=== PATIENT | female | born 1955 | race Caucasian/White ===

== ENCOUNTER 2018-07-09 13:18 | Inpatient (IN) | payer BC ==
[~2018-07-09] VITALS: Ht 170.2 cm; Wt 118.7 kg
[2018-07-09 13:58] VITALS: BP 118/78
[2018-07-09 14:27] LABS: MEAN CORPUSCULAR HEMOGLOBIN 29.3 pg (27.0-34.8); MEAN CORPUSCULAR HGB CONC 33.3 g/dL (32.4-35.8); MEAN CORPUSCULAR VOLUME 87.9 fL (80-100); MEAN PLATELET VOLUME 7.9 fL (7.4-10.4); PLATELET COUNT 282 x10^3/uL (130-400); RED BLOOD COUNT 4.81 x10^6/uL (3.82-5.3); RED CELL DISTRIBUTION WIDTH 15.1 % (9.6-15.2)
[2018-07-09] MEDS ORDERED: LABETALOL 5MG/ML, 20ML IV PRN (14:30)
[2018-07-09] MEDS ORDERED: hydrALAzine 20 MG/ML, 1ML IV PRN (14:30)
[2018-07-09] MEDS ORDERED: OXYcodone 5 MG/5 ML ORAL.SOL UDC PO PRN (14:30)
[2018-07-09] MEDS ORDERED: ONDANSETRON 2MG/ML, 2ML IV PRN ×2 (14:30→18:00)
[2018-07-09] MEDS ORDERED: FENTANYL PF 100 MCG/2ML IV PRN (14:30)
[2018-07-09] MEDS ORDERED: SERT25TA PO (14:34)
[2018-07-09] MEDS ORDERED: CELEBREX (14:34)
[2018-07-09] MEDS ORDERED: TRAM50TA2 PO (14:34)
[2018-07-09] MEDS ORDERED: ETAN50DI2 INJ (14:34)
[2018-07-09] MEDS ORDERED: FENTANYL PF 100 MCG/2ML ONE (14:35)
[2018-07-09] MEDS ORDERED: MIDAZOLAM 1 MG/ML, 2ML ONE (14:35)
[2018-07-09 14:39] LABS: ALANINE AMINOTRANSFERASE 17 U/L (12-78); ALBUMIN 3.3 g/dL (3.4-5.0); ANION GAP 10 mmol/L (5-15); CALCIUM 9.2 mg/dL (8.5-10.1); CHLORIDE 106 mmol/L (98-107); CREATININE 0.79 mg/dL (0.55-1.02)
[2018-07-09 14:41] LABS: ALKALINE PHOSPHATASE 101 U/L (45-117); BILIRUBIN,TOTAL 0.8 mg/dL (0.2-1.0)
[2018-07-09] MEDS ORDERED: LACTATED RINGERS 1,000 ML IV SCH (15:00)
[2018-07-09 15:04] LABS: MD YES
[2018-07-09 15:07] LABS: <PLATELET ESTIMATE> ADEQUATE; <PLT MORPHOLOGY> NORMAL PLT MORPH; <RBC MORPHOLOGY> NORMAL; BANDS%(MANUAL) 11 % (0-7); LYMPHS% (MANUAL) 3 % (22-44); MONOS% (MANUAL) 5 % (2-9); SEGS% (MANUAL) 81 % (42-75)
[2018-07-09] MEDS ORDERED: ONDANSETRON 2MG/ML, 2ML ONE (15:27)
[2018-07-09] MEDS ORDERED: PROPOFOL 10 MG/ML, 20ML ONE (15:27)
[2018-07-09] MEDS ORDERED: HYDROmorphone 1 MG/ML, 1ML IV PRN (18:00)
[2018-07-09] MEDS ORDERED: SENNA/DOCUSATE TABLET PO PRN (18:00)
[2018-07-09] MEDS ORDERED: OXYcodone/APAP 5/325MG TABLET PO PRN (18:00)
[2018-07-09] MEDS ORDERED: DIPHENHYDRAMINE 25 MG CAPSULE PO PRN ×2 (18:00→19:00)
[2018-07-09] MEDS ORDERED: HYDROcodone/APAP 5/325 TABLET PO PRN (18:00)
[2018-07-09] MEDS: DOCUSATE 100 MG CAPSULE PO SCH (20:39)
[2018-07-09] MEDS: ACETAMINOPHEN 500 MG TABLET PO SCH (20:41)
[2018-07-09 21:27] VITALS: BP 124/75
[2018-07-10 00:16] VITALS: BP 111/52
[2018-07-10 04:12] VITALS: BP 96/46
[2018-07-10] MEDS ORDERED: VANCOMYCIN 2,000 MG in SODIUM CHLORIDE 0.9% 500 ML IV SCH (05:00)
[2018-07-10 07:20] VITALS: BP 91/51
[2018-07-10] MEDS: DOCUSATE 100 MG CAPSULE PO SCH ×2 (07:43→21:00)
[2018-07-10] MEDS: SERTRALINE 50MG TABLET PO SCH ×2 (07:43→15:40)
[2018-07-10] MEDS: ACETAMINOPHEN 500 MG TABLET PO SCH ×3 (07:43→20:51)
[2018-07-10] MEDS: LACTATED RINGERS 1,000 ML IV SCH (07:50)
[2018-07-10] MEDS ORDERED: FENTANYL PF 250 MCG/5ML ONE ×2 (10:34→11:55)
[2018-07-10] MEDS ORDERED: TRANEXAMIC ACID 100 MG/ML, 10ML ONE ×2 (10:50)
[2018-07-10] MEDS ORDERED: KETOROLAC 60 MG/2 ML ONE (10:50)
[2018-07-10] MEDS ORDERED: SODIUM CHLORIDE 0.9% 100 ML ONE (10:51)
[2018-07-10] MEDS ORDERED: VANCOMYCIN 1,000 MG ONE (10:51)
[2018-07-10] MEDS ORDERED: TOBRAMYCIN SULFATE 1.2 GM IMP ONE (10:51)
[2018-07-10] MEDS ORDERED: ROPIvacaine/PF 0.5%, 30 ML ONE (10:52)
[2018-07-10] MEDS ORDERED: EPINEPHRINE 1 MG/ML, 1ML ONE (10:52)
[2018-07-10] MEDS ORDERED: METHYLENE BLUE 10 MG/ML 10ML ONE (11:04)
[2018-07-10] MEDS ORDERED: EPHEDRINE 50 MG/ML, 1ML ONE (11:12)
[2018-07-10] MEDS ORDERED: SUGAMMADEX 200 MG/2 ML IVPush ONE (11:12)
[2018-07-10] MEDS ORDERED: ROCURONIUM 10MG/ML,5ML ONE (11:55)
[2018-07-10] MEDS ORDERED: NEOSTIGMINE 1 MG/ML, 10ML ONE (11:55)
[2018-07-10] MEDS ORDERED: DEXAMETHASONE 4 MG/ML, 1ML ONE (11:55)
[2018-07-10] MEDS ORDERED: PROPOFOL 10 MG/ML, 20ML ONE (11:55)
[2018-07-10] MEDS ORDERED: CEFAZOLIN 1,000 MG ONE (11:55)
[2018-07-10] MEDS ORDERED: GLYCOPYRROLATE 0.2MG/1ML, 5ML ONE (11:55)
[2018-07-10] MEDS ORDERED: ONDANSETRON 2MG/ML, 2ML ONE (11:55)
[2018-07-10] MEDS ORDERED: SUCCINYLCHOLINE 20 MG/ML, 10ML ONE (11:55)
[2018-07-10] MEDS ORDERED: ONDANSETRON 2MG/ML, 2ML IV PRN (12:00)
[2018-07-10] MEDS ORDERED: FENTANYL PF 100 MCG/2ML IV PRN (12:00)
[2018-07-10] MEDS ORDERED: ONDANSETRON ODT 8 MG PO PRN (12:00)
[2018-07-10] MEDS ORDERED: DIAZEPAM 5 MG/ML, 2ML IVPush PRN (12:00)
[2018-07-10] MEDS ORDERED: OXYcodone 5 MG/5 ML ORAL.SOL UDC PO PRN (12:00)
[2018-07-10] MEDS ORDERED: MEPERIDINE/PF 25MG/0.5ML IVPush PRN (12:00)
[2018-07-10] MEDS ORDERED: ACETAMINOPHEN 325 MG TABLET PO PRN (12:00)
[2018-07-10] MEDS ORDERED: PROMETHAZINE 25 MG/ML, 1ML IV PRN (12:00)
[2018-07-10] MEDS ORDERED: FENTANYL PF 100 MCG/2ML ONE (13:54)
[2018-07-10] MEDS ORDERED: CEFAZOLIN 2,000 MG in SODIUM CHLORIDE 0.9% 50 ML IV SCH (14:30)
[2018-07-10] MEDS ORDERED: VANCOMYCIN PER PHARMACY MC PRN (14:30)
[2018-07-10] MEDS ORDERED: VANCOMYCIN PMX 1GM/200ML 200 ML IV ONE ×2 (15:00→17:30)
[2018-07-10] MEDS ORDERED: PHARMACOKINETIC MONITORING MC PRN (15:00)
[2018-07-10] MEDS ORDERED: PHARMACOKINETIC CONSULTATION MC ONE (15:00)
[2018-07-10] MEDS: CEFTRIAXONE PMX 2GM/50ML 50 ML IV SCH (15:39)
[2018-07-10 18:57] VITALS: BP 99/51
[2018-07-11 00:13] VITALS: BP_SYST 87; BP_SYST 94; BP_DIAS 46; BP_DIAS 47
[2018-07-11] MEDS: LACTATED RINGERS 1,000 ML IV SCH ×3 (00:21→15:31)
[2018-07-11 04:03] VITALS: BP 92/47
[2018-07-11] MEDS: VANCOMYCIN 2,000 MG in SODIUM CHLORIDE 0.9% 500 ML IV SCH ×2 (05:05→23:03)
[2018-07-11 05:38] LABS: ANION GAP 6 mmol/L (5-15); CALCIUM 8.4 mg/dL (8.5-10.1); CHLORIDE 107 mmol/L (98-107)
[2018-07-11 05:39] LABS: MEAN CORPUSCULAR HEMOGLOBIN 29.2 pg (27.0-34.8); MEAN CORPUSCULAR HGB CONC 32.7 g/dL (32.4-35.8); MEAN PLATELET VOLUME 8.1 fL (7.4-10.4); PLATELET COUNT 216 x10^3/uL (130-400); RED BLOOD COUNT 3.36 x10^6/uL (3.82-5.3); RED CELL DISTRIBUTION WIDTH 15.6 % (9.6-15.2)
[2018-07-11 05:48] LABS: CREATININE 0.49 mg/dL (0.55-1.02)
[2018-07-11 05:55] LABS: HCT (SEDRATE) 29.9 % (34.6-47.8)
[2018-07-11 05:59] LABS: C-REACTIVE PROTEIN, QUANT > 19.00 mg/dL (0.02-0.49)
[2018-07-11 06:31] LABS: MD YES
[2018-07-11 06:34] LABS: BAND#(MANUAL) 0.56 x10^3/uL; BANDS%(MANUAL) 6 % (0-7); LYMPH#(MANUAL) 0.75 x10^3/uL (1-3.4); LYMPHS% (MANUAL) 8 % (22-44); MONOS#(MANUAL) 0.19 x10^3/uL (0.3-2.7); MONOS% (MANUAL) 2 % (2-9); SEGS% (MANUAL) 84 % (42-75)
[2018-07-11 06:35] LABS: <PLATELET ESTIMATE> ADEQUATE; <PLT MORPHOLOGY> NORMAL PLT MORPH; ANISOCYTOSIS 1+; POLYCHROMASIA 1+
[2018-07-11] MEDS: DOCUSATE 100 MG CAPSULE PO SCH ×3 (08:27→20:46)
[2018-07-11] MEDS: SERTRALINE 50MG TABLET PO SCH (08:27)
[2018-07-11] MEDS: ACETAMINOPHEN 500 MG TABLET PO SCH ×3 (08:27→20:47)
[2018-07-11 09:35] VITALS: BP 93/46
[2018-07-11 13:55] VITALS: BP 91/43
[2018-07-11] MEDS: CEFTRIAXONE PMX 2GM/50ML 50 ML IV SCH (15:30)
[2018-07-11] MEDS: RIVAROXABAN 10 MG TABLET PO SCH (18:47)
[2018-07-11 21:14] VITALS: BP 121/62
[2018-07-12 02:53] VITALS: BP 107/52
[2018-07-12] MEDS: LACTATED RINGERS 1,000 ML IV SCH ×2 (03:00→10:25)
[2018-07-12 05:44] LABS: BASOPHILS # (AUTO) 0.03 x10^3/uL (0-0.1); BASOPHILS % (AUTO) 0 % (0-1); EOSINOPHILS # (AUTO) 0.13 x10^3/uL (0-0.4); EOSINOPHILS % (AUTO) 2 % (1-7); LYMPHOCYTES # (AUTO) 1.04 x10^3/uL (1-3.4); LYMPHOCYTES % (AUTO) 15 % (22-44); MD NO; MEAN CORPUSCULAR HEMOGLOBIN 29.9 pg (27.0-34.8); MEAN CORPUSCULAR HGB CONC 33.9 g/dL (32.4-35.8); MEAN CORPUSCULAR VOLUME 88.2 fL (80-100); MEAN PLATELET VOLUME 8.2 fL (7.4-10.4); MONOCYTES # (AUTO) 0.38 x10^3/uL (0.2-0.8); MONOCYTES % (AUTO) 5 % (2-9); NEUTROPHILS # (AUTO) 5.56 x10^3/uL (1.8-6.8); NEUTROPHILS % (AUTO) 78 % (42-75); PLATELET COUNT 232 x10^3/uL (130-400); RED BLOOD COUNT 3.26 x10^6/uL (3.82-5.3); RED CELL DISTRIBUTION WIDTH 15.3 % (9.6-15.2)
[2018-07-12 05:49] LABS: ANION GAP 8 mmol/L (5-15); CHLORIDE 110 mmol/L (98-107); CREATININE 0.65 mg/dL (0.55-1.02)
[2018-07-12 06:44] VITALS: BP 96/52
[2018-07-12] MEDS: SERTRALINE 50MG TABLET PO SCH (08:52)
[2018-07-12] MEDS: ACETAMINOPHEN 500 MG TABLET PO SCH ×3 (08:52→21:38)
[2018-07-12] MEDS: DOCUSATE 100 MG CAPSULE PO SCH ×2 (08:53→21:34)
[2018-07-12 13:12] VITALS: BP 102/52
[2018-07-12] MEDS: CEFTRIAXONE PMX 2GM/50ML 50 ML IV SCH (15:14)
[2018-07-12] MEDS: RIVAROXABAN 10 MG TABLET PO SCH (16:53)
[2018-07-12] MEDS: VANCOMYCIN 2,000 MG in SODIUM CHLORIDE 0.9% 500 ML IV SCH (16:53)
[2018-07-12 21:38] VITALS: BP 103/47
[2018-07-13] MEDS: LACTATED RINGERS 1,000 ML IV SCH ×3 (00:41→19:54)
[2018-07-13 00:55] VITALS: BP 106/55
[2018-07-13 07:45] VITALS: BP 95/59
[2018-07-13] MEDS: SERTRALINE 50MG TABLET PO SCH (08:43)
[2018-07-13] MEDS: DOCUSATE 100 MG CAPSULE PO SCH ×2 (08:43→19:58)
[2018-07-13] MEDS: ACETAMINOPHEN 500 MG TABLET PO SCH ×3 (08:43→22:00)
[2018-07-13] MEDS: VANCOMYCIN 2,000 MG in SODIUM CHLORIDE 0.9% 500 ML IV SCH (11:50)
[2018-07-13 12:51] VITALS: BP 109/71
[2018-07-13] MEDS ORDERED: DOXYCYCLINE IV ONE (14:30)
[2018-07-13] MEDS ORDERED: DEXTROSE 5% IV ONE (14:30)
[2018-07-13] MEDS: CEFTRIAXONE PMX 2GM/50ML 50 ML IV SCH (16:42)
[2018-07-13] MEDS: RIVAROXABAN 10 MG TABLET PO SCH (16:44)
[2018-07-13] MEDS: DOXYCYCLINE 100MG TABLET PO SCH (19:56)
[2018-07-13 20:15] VITALS: BP 105/48
[2018-07-14 02:14] VITALS: BP 137/56
[2018-07-14 08:19] VITALS: BP 128/64
[2018-07-14] MEDS: ACETAMINOPHEN 500 MG TABLET PO SCH ×3 (08:36→21:00)
[2018-07-14] MEDS: DOXYCYCLINE 100MG TABLET PO SCH ×2 (08:36→21:19)
[2018-07-14] MEDS: SERTRALINE 50MG TABLET PO SCH (08:36)
[2018-07-14] MEDS: LACTATED RINGERS 1,000 ML IV SCH ×2 (08:37→21:16)
[2018-07-14] MEDS: DOCUSATE 100 MG CAPSULE PO SCH ×2 (08:37→21:00)
[2018-07-14 15:06] VITALS: BP 133/74
[2018-07-14] MEDS: CEFTRIAXONE PMX 2GM/50ML 50 ML IV SCH (16:02)
[2018-07-14] MEDS: RIVAROXABAN 10 MG TABLET PO SCH (17:00)
[2018-07-14 19:29] VITALS: BP 103/61
[2018-07-15 01:27] VITALS: BP 116/69
[2018-07-15 08:20] VITALS: BP 138/83
[2018-07-15] MEDS: DOCUSATE 100 MG CAPSULE PO SCH (09:00)
[2018-07-15] MEDS: DOXYCYCLINE 100MG TABLET PO SCH (09:48)
[2018-07-15] MEDS: ACETAMINOPHEN 500 MG TABLET PO SCH ×2 (09:48→16:00)
[2018-07-15] MEDS: SERTRALINE 50MG TABLET PO SCH (09:48)
[2018-07-15] MEDS: LACTATED RINGERS 1,000 ML IV SCH (09:49)
[2018-07-15] MEDS ORDERED: RIVA10TA2 PO (11:06)
[2018-07-15 14:43] VITALS: BP 139/78
[2018-07-15] MEDS: CEFTRIAXONE PMX 2GM/50ML 50 ML IV SCH (15:26)
== END 2018-07-15 17:20 | disposition home health service (06) | DRG 468 ==
LOC: OR 13:18 → ORIP 17:59 → 4NOR 19:00 → DCLOUNGE 07-15 17:10
PROVIDERS: ADMIT Orthopaedic Surgery; ATTEND Orthopaedic Surgery
PROC: 0S993ZZ Drainage of Right Hip Joint, Percutaneous Approach (ICD-10-PCS; 2018-07-09)
PROC: 0SRR019 Replacement of Right Hip Joint, Femoral Surface with Metal Synthetic Substitute, Cemented, Open Approach (ICD-10-PCS; 2018-07-10)
PROC: 0SPR0JZ Removal of Synthetic Substitute from Right Hip Joint, Femoral Surface, Open Approach (ICD-10-PCS; 2018-07-10)
PROC: 0SP909Z Removal of Liner from Right Hip Joint, Open Approach (ICD-10-PCS; 2018-07-10)
PROC: 0SUA09Z Supplement Right Hip Joint, Acetabular Surface with Liner, Open Approach (ICD-10-PCS; 2018-07-10)
PROC: 02HV33Z Insertion of Infusion Device into Superior Vena Cava, Percutaneous Approach (ICD-10-PCS; principal; 2018-07-12)
PROC: B5181ZA Fluoroscopy of Superior Vena Cava using Low Osmolar Contrast, Guidance (ICD-10-PCS; 2018-07-12)
PROC: B548ZZA Ultrasonography of Superior Vena Cava, Guidance (ICD-10-PCS; 2018-07-12)
DX: T84.51XA Infection and inflammatory reaction due to internal right hip prosthesis, initial encounter (principal); M06.9 Rheumatoid arthritis, unspecified; Z96.641 Presence of right artificial hip joint; Y83.1 Surgical operation with implant of artificial internal device as the cause of abnormal reaction of the patient, or of later complication, without mention of misadventure at the time of the procedure; Z79.899 Other long term (current) drug therapy; Z85.048 Personal history of other malignant neoplasm of rectum, rectosigmoid junction, and anus; Z93.3 Colostomy status
CPT/HCPCS: 36415; 72170; 73501; 76000; J3260; J3490; 36573; 80048; 80053; 80202; 85025; 85651; 86140; 86850; 86900; 86923; 87070; 87075; 87077; 87176; 87205; 89051; 93005; C1713; G0378; J0171; J0690; J0696; J1100; J1885; J2250; J2405; J2704; J2710; J2795; J3010; J3370; C1751; C1776; J0330; J7040; J7060; J7120; Q9968

== ENCOUNTER 2019-04-06 16:05 | Emergency (ER) | payer BC ==
[~2019-04-06] VITALS: Ht 167.6 cm; Wt 88.0 kg
[~2019-04-06 16:05] MED LIST: CELEBREX; ETAN50DI2 INJ; RIVA10TA2 PO; SERT25TA PO; TRAM50TA2 PO
--- NOTE | 2019-04-06 16:18 | NUR ---
PT TAKEN TO XRAY
--- NOTE | 2019-04-06 16:19 | NUR ---
BIB [facility]. C/O RIGHT HIP PAIN AND DISCLOCATIONE. PT PUTTING ON SHOES THIS AM AND RIGHT HIP DISCLOCATED. HX MULTIPLE SURGERIES ON SAME HIP/LEG. PT C/O PAIN WHEN MOVING. CONNECTED TO MONITORING. CALL LIGHT IN REACH.
[2019-04-06] MEDS ORDERED: SODIUM CHLORIDE FLUSH 10ML SYR IVF ONE (16:30)
[2019-04-06] MEDS ORDERED: PLEASE ENTER HEIGHT AND WEIGHT MC SCH (16:30)
--- NOTE | 2019-04-06 17:00 | NUR ---
MD AT BEDSIDE TO UPDATE PT ON POC.
[2019-04-06] MEDS ORDERED: PROPOFOL 10 MG/ML, 20ML ONE ×2 (17:06→18:06)
--- NOTE | 2019-04-06 17:31 | NUR ---
PROPOFOL PULLED FOR MD ADMINISTRATION.
--- NOTE | 2019-04-06 17:32 | NUR ---
PT PREPPED FOR CLOSED REDUCTION OF RIGHT HIP WITH PROCEDURAL SEDATION. CONSENT SIGNED. NOTIFIED.
[2019-04-06] MEDS ORDERED: PROPOFOL 10 MG/ML, 20ML IVPush ONE (18:00)
--- NOTE | 2019-04-06 18:07 | NUR ---
NEW PIV PLACED IN PT PER ACCIDENTAL DISLODGEMENT.
--- NOTE | 2019-04-06 18:10 | NUR ---
TIMEOUT AT 1735. PT SEDATED WITH TOTAL 170MG PROPOFOL. MD AND MED STUDENT MANEUVERED RIGHT LEG UNTIL NOTICABLE POP AND LEG LENGTH EQUAL TO OTHER LEG. AFTER A FEW MINUTES, PT BEGAN SPEAKING IN FULL SENTENCES. STAT RECHECK XRAY ORDERED.
--- NOTE | 2019-04-06 19:16 | NUR ---
PT REMAINS AWAKER AND ALERT. CONVERSATING WITH DAUGHTER. PT REPORTS PAIN RELIEF. PTS VSS. PT WILL BE CONTINUED TO BE MONITORED.
[2019-04-06 19:58] VITALS: BP 115/54
--- NOTE | 2019-04-06 20:00 | NUR ---
PT WHEELED TO RESTROOM. PT TRANSFERRED TO TOILET AND BACK W/O ANY ASSISTANCE.
--- NOTE | 2019-04-06 20:36 | NUR ---
Patient/Caregiver given discharge instructions and they have confirmed that they understand the instructions. Pt wheeled to dc with daughter to drive pt home.
== END 2019-04-06 20:37 | disposition home or self-care (01) ==
LOC: ED 16:48
DX: T84.020A Dislocation of internal right hip prosthesis, initial encounter (principal); X58.XXXA Exposure to other specified factors, initial encounter; Y93.89 Activity, other specified; Y92.009 Unspecified place in unspecified non-institutional (private) residence as the place of occurrence of the external cause; Y99.8 Other external cause status
CPT/HCPCS: 27265; 29505; 99283